=== PATIENT | female | born 2000 | race Caucasian/White ===

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

== ENCOUNTER 2023-11-17 01:52 | Emergency (ER) | payer SELFPAY ==
[2023-11-17] VITALS (8 sets, daily range): BP systolic 99–135; BP diastolic 52–88
[~2023-11-17] VITALS: Ht 152.4 cm; Wt 49.0 kg
[2023-11-17] MEDS ORDERED: MORPHINE SULFATE 4 MG/ML VIAL IV ONE ×2 (02:05→04:45)
[2023-11-17] MEDS ORDERED: SODIUM CHLORIDE 0.9% 1,000 ML IV ONE ×2 (02:05→04:50)
[2023-11-17] MEDS ORDERED: ONDANSETRON HCl 4 MG/2 ML SDV IV ONE (02:05)
[2023-11-17 02:37] LABS: BASO% 0.2 % (0-3); EOS% 0.1 % (0-8); IMMATURE GRANULOCYTES 1.5 % (0.0-5.0); LYMPH% 13.2 % (15-41); MEAN CELL VOLUME 90.4 fL CALC (80.0-100.0); MEAN CORPUSCULAR HGB 29.9 pG CALC (26.0-32.0); MONO% 4.3 % (2-13); NEUT# 15.48 thou/uL (2.00-7.15); NEUT% 80.7 % (42-76); RED BLOOD COUNT 4.92 mill/uL (4.20-5.60); RED CELL DISTRI WIDTH 13.5 % (11.5-15.5)
[2023-11-17 02:40] LABS: ALBUMIN 5.1 g/dL (3.2-5.0); BILIRUBIN, TOTAL 0.5 mg/dL (0.02-1.3); CREATININE 0.6 mg/dL (0.5-1.0); HEMATOCRIT 44.5 % (37.0-47.0); HEMOGLOBIN 14.7 g/dl (12.0-16.0); POTASSIUM 3.8 mmol/l (3.5-5.1); TOTAL PROTEIN 8.2 g/dL (6.3-8.2)
[2023-11-17] MEDS ORDERED: Levofloxacin 500 mg Premix 100 ML IV ONE (04:05)
[2023-11-17] MEDS ORDERED: FLEXERIL5 M1 PO (05:29)
[2023-11-17] MEDS ORDERED: SILVADENE1 % EX (05:29)
[2023-11-17] MEDS ORDERED: CELEBREX200 M1 PO (05:29)
[2023-11-17 05:44] LABS: URINE BILIRUBIN - DIPSTICK Negative (NEGATIVE); URINE BLOOD DIPSTICK Trace-intact (NEGATIVE); URINE GLUCOSE - DIPSTICK Negative (NEGATIVE); URINE KETONE Negative (NEGATIVE); URINE LEUK ESTERASE Negative (NEGATIVE); URINE NITRITE - DIPSTICK Negative (Negative); URINE PH 5.5 (4.5-8.0); URINE PROTEIN - DIPSTICK Negative (NEG-TRACE); URINE UROBILINOGEN - DIPSTICK 0.2 E.U./dL (0.2)
[2023-11-17 05:47] LABS: URINE COLOR Yellow
[2023-11-17] MEDS ORDERED: DOXY-CAPS100 MG PO (06:04)
== END 2023-11-17 07:06 | disposition home or self-care (01) | DRG 605 ==
LOC: ED 01:52
PROVIDERS: Emergency Medicine
DX: S30.810A Abrasion of lower back and pelvis, initial encounter (principal); T14.8XXA Other injury of unspecified body region, initial encounter; V03.90XA Pedestrian on foot injured in collision with car, pick-up truck or van, unspecified whether traffic or nontraffic accident, initial encounter
CPT/HCPCS: J1956; Q9967